=== PATIENT | female | born 1980 | race Caucasian/White ===

== ENCOUNTER 2017-08-17 08:36 | Emergency (ER) | payer MEDICAID ==
[2017-08-17 10:33] LABS: URINE PH (Dip) POC 7.5 (5.0-8.5)
[2017-08-17 10:33] LABS: URINE BLOOD (Dip) POC Trace-intact (NEGATIVE); URINE GLUCOSE (Dip) POC Negative (NEGATIVE); URINE KETONES (Dip) POC Negative (NEGATIVE); URINE LEUKOCYTE EST (Dip) POC 1+ (NEGATIVE); URINE NITRITE (Dip) POC Negative (NEGATIVE); URINE TOTAL PROTEIN POC Negative (NEGATIVE)
[2017-08-17] MEDS: IBUPROFEN 600 MG TAB PO (11:26)
== END 2017-08-17 13:44 | disposition home or self-care (01) ==
LOC: FTE 08:36
DX: R10.2 Pelvic and perineal pain (principal); Z79.82 Long term (current) use of aspirin
CPT/HCPCS: 74176; 76830; 76856; 81003; 87591; 99285-25